=== PATIENT | male | born 1935 | race Caucasian/White ===

== ENCOUNTER 2023-11-21 10:33 | Inpatient (IN) | payer OTHER, SELFPAY ==
[2023-11-21] VITALS (7 sets, daily range): BP systolic 120–167; BP diastolic 66–84; PULSE 60–71; RESP 16–24; TEMP 36.4–37.1; O2SAT 93–98; BMI 26.8
--- NOTE | ~2023-11-21 | CT_ITS ---
EXAMINATION: CT HEAD WITHOUT CONTRAST (STROKE PROTOCOL) CLINICAL INFORMATION: Stroke protocol. Right-sided weakness COMPARISON: None available. TECHNIQUE: Contiguous axial imaging was performed from the skull base to vertex without intravenous administration of contrast. This CT examination was performed using dose optimization techniques as appropriate, variously including the following: *Automated exposure control *Adjustment of mA and/or kV according to patient size (this includes techniques or standardized protocols for targeted exams where dose is matched to indication/reason for exam; i.e. extremities or head) *Use of iterative reconstruction technique DLP: 805 mGy-cm FINDINGS: There is no evidence for an extra-axial collection. There is no evidence for intra-or extra-axial hemorrhage. The ventricles and extra-axial CSF spaces are prominent suggestive of mild generalized atrophy. There is nonspecific periventricular white matter disease. No mass, mass effect or infarct is seen. No skull fracture. Degenerative changes at the right temporomandibular joint.. Sinuses mastoid air cells and middle ears are clear. CT/CT head for stroke IMPRESSION: No acute intracranial pathology. Mild generalized atrophy and nonspecific periventricular white matter disease. This critical result was discussed with Dr. Brar at 1055 hours on 11/21/2023. It was ascertained that the content and urgency of the report was understood at the time of direct communication.
--- NOTE | ~2023-11-21 | MR_ITS ---
EXAMINATION: MR BRAIN WITHOUT CONTRAST CLINICAL INFORMATION: Transient ischemic attack. Cerebrovascular accident. COMPARISON: CTA head and neck from 11/21/2023. TECHNIQUE: MRI of the brain was obtained using routine sequences without contrast. FINDINGS: Small region of restricted diffusion within the left tate radiata/tail of the left caudate nucleus. Associated T2 FLAIR hyperintensity. No evidence of hemorrhagic transformation. No additional restricted diffusion. No evidence of acute or chronic hemorrhagic products on heme-sensitive imaging. Scattered and partially confluent periventricular, deep white matter, and brainstem T2 FLAIR hyperintensities consistent with mild to moderate underlying microangiopathy. Chronic lacunar infarcts of the right central osmany and bilateral cerebellar hemispheres. Proportional prominence of the ventricles and sulcal spaces without evidence of obstructive hydrocephalus. No abnormal mass effect. No midline shift. Normal appearance of the pituitary gland. Normal positioning of the cerebellar tonsils. Normal arterial and venous vascular flow voids are present. Normal, homogeneous marrow signal. Mild mucosal thickening of the paranasal sinuses. Mild leftward nasal septal deviation. No signal abnormalities within the mastoids. Right-sided lens extraction. MR/MR head/brain wo con IMPRESSION: 1. Small acute infarct of the left tate radiata/tail of the left caudate nucleus. No evidence of hemorrhagic transformation. 2. Mild to moderate underlying microangiopathy and generalized cerebral volume loss. Chronic lacunar infarcts of the right central osmany and bilateral cerebellar hemispheres.
--- NOTE | ~2023-11-21 | CT_ITS ---
CT ANGIOGRAM NECK WITH CONTRAST CT ANGIOGRAM BRAIN WITH CONTRAST CLINICAL INFORMATION: Sudden onset result right-sided weakness. COMPARISON: Head CT performed earlier the same day. TECHNIQUE: Test bolus sequences followed by intravenous administration 70 mL of Omnipaque 350. Helical imaging was performed in the axial plane from the thoracic inlet to the skull vertex. Delayed postcontrast imaging of the head was also performed. The data was processed at the operating room surgical technologist workstation for generation of MIP sequences. Angled MIPs and volume rendered reformatted images were also generated at an offline 3D workstation under concurrent supervision. Stenoses are assessed in accordance with NASCET criteria unless otherwise indicated. This CT examination was performed using dose optimization techniques as appropriate, variously including the following: *Automated exposure control *Adjustment of mA and/or kV according to patient size (this includes techniques or standardized protocols for targeted exams where dose is matched to indication/reason for exam; i.e. extremities or head) *Use of iterative reconstruction technique FINDINGS: BRAIN: [There is an indeterminate age small infarct within the right ventral osmany and there are small indeterminate age lacunar infarcts within the deep smith nuclei bilaterally and cerebellar hemispheres as well as background chronic microangiopathy. A MRI of the brain could be obtained to more definitively exclude an acute infarct if not contraindicated. No mass effect intracranially and no intracranial hemorrhage. There is no intracranial hemorrhage, hydrocephalus, extra-axial surface collection, midline shift, or other herniation pattern. Smith to white matter differentiation is diffusely maintained without evidence of an evolved acute territorial infarct. The basilar cisterns are preserved. No significant soft tissue abnormality. No acute osseous abnormality. The paranasal sinuses and the mastoid air cells are well aerated.] CERVICAL SOFT TISSUES AND LUNG APICES: Imaged upper lungs are clear. There are no significant soft tissue findings within the neck. Right lens extraction. There is advanced cervical spondylosis. NECK CTA: The right vertebral artery is dominant and the cervical vertebral arteries remain widely patent throughout their course. There is a 3 great vessel branch configuration off of the aortic arch and the great vessel origins remain widely patent. There is atherosclerotic calcification involving the carotid bifurcations bilaterally without significant stenosis involving the proximal internal carotid arteries either side. BRAIN CTA: [There is normal opacification of major intracranial arteries. No focal flow-limiting stenosis nor discrete proximal large artery occlusion. A 1.5 mm infundibulum versus aneurysm projects inferiorly communicating segment of the right internal carotid artery. There is a 1.5 mm infundibulum versus aneurysm at the junction of the left anterior cerebral artery and the left anterior artery as well. Timing of the contrast bolus allows assessment of the major dural venous sinuses, which all opacify normally] CT/CT angio head neck IMPRESSION: - There is an indeterminate age small infarct within the right ventral osmany and there are small indeterminate age lacunar infarcts within the deep smith nuclei bilaterally and cerebellar hemispheres as well as background chronic microangiopathy. A MRI of the brain could be obtained to more definitively exclude an acute infarct if not contraindicated. No mass effect intracranially and no intracranial hemorrhage. - No acute arterial occlusions and no significant arterial stenoses within the head or neck. - A 1.5 mm infundibulum versus aneurysm projects inferiorly communicating segment of the right internal carotid artery. There is a 1.5 mm infundibulum versus aneurysm at the junction of the left anterior cerebral artery and the left anterior artery as well. - Advanced cervical spondylosis.
--- NOTE | ~2023-11-21 | XR_ITS ---
EXAMINATION: XR CHEST CLINICAL INFORMATION: Weakness COMPARISON: None available. TECHNIQUE: Frontal view of the chest was obtained. FINDINGS: The cardiac silhouette does not appear enlarged. There is an aortic valve stent graft. Hilar and mediastinal contours are unremarkable. The lungs are clear. No pleural effusion or pneumothorax. Bony structures are unremarkable. XR/XR chest 1V IMPRESSION: No evidence for acute disease in the chest.
--- NOTE | 2023-11-21 10:40 | ECG_ITS ---
Test Reason : STROKE Blood Pressure : / mmHG Vent. Rate : 060 BPM Atrial Rate : 055 BPM P-R Int : 000 ms QRS Dur : 170 ms QT Int : 482 ms P-R-T Axes : 000 -65 071 degrees QTc Int : 482 ms Ventricular-paced rhythm Abnormal ECG No previous ECGs available Referred By: Daniela Jay Electronically Signed By:Roland Ramos
--- NOTE | 2023-11-21 10:55 | ED.NEUROSD ---
HPI - Neuro Symptoms/Deficit General Chief Complaint: Stroke Stated Complaint: Sudden onset weakness. Stroke Alert Source: patient, EMS and old records reviewed Mode of arrival: EMS Limitations: no limitations History of Present Illness ED Provider: JACQUE HPI Narrative: 88 yo male with PMH of BPH, HLD, CVA reported L sided deficits, dCHF, dysphagia, afib on pradaxa, PPM, TAVR 2022, depression, 90 minutes ago was noted by staff to have R arm weakness sudden and slurred speech that resolved upon EMS arrival. EMS noted diffusely weak in both legs patient denies c/o headache or trauma. Pradaxa is not on med list but patient is alert and oriented x 3 and both patient and [facility] staff told EMS he was on pradaxa to EMS he has been consistent. 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 The patient has no complaints at this time states his LLE weakness is chronic Onset (ago): hour(s) (1.5) Timing confirmed by: caregiver Location: speech and right arm History of same: No Severity: moderate Quality: weak Relieving factors: time Exacerbating factors: none Context: sudden onset On Anticoagulants: Yes Associated symptoms: denies other symptoms Treatments Prior to Arrival: none Related Data Allergies Allergy/AdvReac Type Severity Reaction Status Date / Time aspirin Allergy Unknown Verified 11/21/23 10:46 lisinopril Allergy Unknown Verified 11/21/23 10:46 Review of Systems Review of Systems: Constitutional : No Fever, No Chills, No Fatigue ENT/Mouth : No sore throat, No Rhinorrhea Eyes: No Eye Pain, No Swelling, No Redness Cardiovascular : No Chest Pain, No SOB, No Dyspnea on Exertion Respiratory : No Cough, No Sputum Gastrointestinal : No Nausea, No Vomiting, No Diarrhea, No abdominal Pain Genitourinary : No Dysuria, No Urinary Frequency, No Hematuria, Musculoskeletal : No joint pain, No Myalgias, No Joint Swelling Skin : No Skin Lesions, No rash Neuro :pos Weakness, No Numbness, No Dizziness, no Headache Psych : No Anxiety/Panic, No Depression Heme/Lymph: No Bruising, No Bleeding,No Lymphadenopathy Endocrine : No Polyuria, No Polydipsia All other systems reviewed and are negative PMFSH Past Medical History Source: old records reviewed Medical History CHF (congestive heart failure) HTN (hypertension) Hyperlipidemia Glaucoma BPH (benign prostatic hyperplasia) CVA (cerebral vascular accident) Afib Surgical History S/P TAVR (transcatheter aortic valve replacement) Social History Social History (Updated 11/21/23 @ 11:05 by Daniela Jay DO) Patient Tobacco Use Status: Never used Tobacco Smoked in Last 30 Days: No Advance Directives: No Advance Directives Information Provided: Yes Physical Exam Vital Signs: Vital Signs: Last Vital Signs Temp 97.6 F 11/21/23 14:00 Pulse 60 11/21/23 14:00 Resp 22 H 11/21/23 14:00 BP 157/84 H 11/21/23 14:00 Pulse Ox 93 11/21/23 12:00 O2 Del Method Room Air 11/21/23 14:00 BMI result Body Mass Index 26.8 Appearance: Alert. Oriented X3. No acute distress. Eyes: Pupils equal, round and reactive to light. ENT: Pharynx normal. Neck: Normal inspection. Neck supple. CVS: Normal heart rate and rhythm. Pulses normal. Respiratory: No respiratory distress. Breath sounds normal. Abdomen: Soft and non-tender. Skin: Skin warm and dry. Normal skin color. Normal skin turgor. Extremities: No lower extremity edema. No calf ttp Neuro: Oriented X 3. L leg weakness 4/5 otherwise no drift or deficits noted. No sensory deficit. Course Course Course Narrative: NIH is 1 but 1 is old deficit so NIH would be 0 from deficits today Medications Administered Discontinued Medications Generic Name Dose Route Start Last Admin Trade Name Mikeq PRN Reason Stop Dose Admin Iohexol 70 ml 11/21/23 13:07 11/21/23 13:07 Iohexol 350 Mg/Ml 100 Ml Infus..Btl IV 11/21/23 13:08 70 ml ONCE ONE Administration Medical Decision Making Medical Decision Making [facility] Narrative: 88 yo male with PMH of BPH, HLD, CVA reported L sided deficits, dCHF, dysphagia, afib on pradaxa, PPM, TAVR 2022, depression here with reported R sided deficits at [facility] not seen by EMS patient then had diffuse LE weakness at this time not toxic no headache has no new deficits doubt LVO and I do not have baseline Cr will obtain basic labs, CT head for ICH/mass he is persistent he is on pradaxa so not a candidate for TNK though NIH is O. Possible toxic/metabolic weakness vs TIA Differential Diagnosis Differential Diagnoses: The differential diagnosis associated with the presentation includes TIA, weakness, stroke or toxic metabolic encephalopathy Admission/Observation Consideration of admission/observation: Escalation of care including admission/observation considered aspirin held already on pradaxa will admit for further workup Consult Healthcare Provider Management of the patient was discussed with: Hospitalist (will admit) Lab Data MDM Lab Attestation statement: I reviewed the patient's lab results. 11/21/23 11:03 11/21/23 11:03 Labs: Lab Results 11/21/23 11/21/23 11/21/23 Range/Units 10:38 10:41 11:02 WBC (4.8-10.8) X10*3/uL RBC (4.60-5.80) X10*6/uL Hgb (14.0-18.0) g/dl Hct (42.0-52.0) % MCV (80.0-98.0) fL MCH (27.0-33.0) pg MCHC (31.0-36.0) g/dl RDW (11.0-16.0) % Plt Count (160-400) X10*3/uL MPV (9.4-12.4) fL Immature Gran % (Auto) (0.0-0.4) % Neut % (Auto) (45-73) % Lymph % (Auto) (20-40) % [place] % (Auto) (2-11) % Eos % (Auto) (0-4) % Baso % (Auto) (0-2) % Lymph # (Auto) (1.2-4.9) X10*3/uL [place] # (Auto) (0.1-1.2) X10*3/uL Eos # (Auto) (0.0-0.4) X10*3/uL Baso # (Auto) (0.0-0.2) X10*3/uL Abs Immat Gran (auto) (0.00-0.03) X10*3/uL Absolute Neuts (auto) (2.0-8.3) x10*3/uL Absolute Nucleated RBC (0.0-0.012) X10*3/uL Nucleated RBC % (auto) (0.0-0.2) /100WBC PT (11.1-13.3) SEC Whole Blood PT 14.0 H (11.1-13.5) sec INR (0.9-1.1) Whole Blood INR 1.2 H (0.9-1.1) Sodium (135-145) mmol/L Potassium (3.3-5.1) mmol/L Chloride (96-108) mmol/L Carbon Dioxide (22-29) mmol/L Anion Gap (12-20) BUN (9-16) mg/dL Creatinine (0.5-1.4) mg/dL Estim Creat Clear Calc Estimated GFR POC Glucose 128 H (60-115) mg/dL Random Glucose (60-115) mg/dL Lactic Acid (0.5-2.0) mmol/L Calcium (8.4-10.2) mg/dL Magnesium (1.6-2.6) mg/dL Total Bilirubin (0.0-1.0) mg/dL Direct Bilirubin (0.0-0.5) mg/dL AST (5-37) U/L ALT (0-40) U/L Alkaline Phosphatase (39-117) U/L Troponin I High Sens (<3.5-35.0) ng/L B-Natriuretic Peptide (<100) pg/mL Total Protein (6.5-8.0) g/dL Albumin (3.5-5.0) g/dL Triglycerides (<150) mg/dL Cholesterol (<200) mg/dL LDL Cholesterol, Calc (<100) mg/dL HDL Cholesterol (>40) mg/dL Urine Color Urine Appearance Urine pH (5.0-9.0) Ur Specific [place] (1.005-1.025) Urine Protein (Neg-Trace) mg/dL Urine Glucose (UA) (Negative) mg/dL Urine Ketones (Negative) mg/dL Urine Blood (Negative) Urine Nitrite (Negative) Ur Leukocyte Esterase (Negative) Influenza Type A (PCR) NEGATIVE (Negative) Influenza Type B (PCR) NEGATIVE (Negative) RSV RNA Qual (PCR) NEGATIVE (Negative) SARS-CoV-2 RNA (RT-PCR) NEGATIVE (Negative) 11/21/23 11/21/23 Range/Units 11:03 11:19 WBC 7.0 (4.8-10.8) X10*3/uL RBC 4.48 L (4.60-5.80) X10*6/uL Hgb 13.7 L (14.0-18.0) g/dl Hct 40.3 L (42.0-52.0) % MCV 90.0 (80.0-98.0) fL MCH 30.6 (27.0-33.0) pg MCHC 34.0 (31.0-36.0) g/dl RDW 13.0 (11.0-16.0) % Plt Count 192 (160-400) X10*3/uL MPV 9.2 L (9.4-12.4) fL Immature Gran % (Auto) 0.3 (0.0-0.4) % Neut % (Auto) 68.8 (45-73) % Lymph % (Auto) 19.5 L (20-40) % [place] % (Auto) 8.4 (2-11) % Eos % (Auto) 2.1 (0-4) % Baso % (Auto) 0.9 (0-2) % Lymph # (Auto) 1.4 (1.2-4.9) X10*3/uL [place] # (Auto) 0.6 (0.1-1.2) X10*3/uL Eos # (Auto) 0.2 (0.0-0.4) X10*3/uL Baso # (Auto) 0.1 (0.0-0.2) X10*3/uL Abs Immat Gran (auto) 0.02 (0.00-0.03) X10*3/uL Absolute Neuts (auto) 4.8 (2.0-8.3) x10*3/uL Absolute Nucleated RBC 0.000 (0.0-0.012) X10*3/uL Nucleated RBC % (auto) 0.0 (0.0-0.2) /100WBC PT 15.2 H (11.1-13.3) SEC Whole Blood PT (11.1-13.5) sec INR 1.3 H (0.9-1.1) Whole Blood INR (0.9-1.1) Sodium 139 (135-145) mmol/L Potassium 3.9 (3.3-5.1) mmol/L Chloride 108 (96-108) mmol/L Carbon Dioxide 24 (22-29) mmol/L Anion Gap 11 L (12-20) BUN 24 H (9-16) mg/dL Creatinine 0.96 (0.5-1.4) mg/dL Estim Creat Clear Calc 53.4 Estimated GFR > 60 POC Glucose (60-115) mg/dL Random Glucose 117 H (60-115) mg/dL Lactic Acid 1.6 (0.5-2.0) mmol/L Calcium 9.2 (8.4-10.2) mg/dL Magnesium 2.2 (1.6-2.6) mg/dL Total Bilirubin 0.5 (0.0-1.0) mg/dL Direct Bilirubin 0.2 (0.0-0.5) mg/dL AST 19 (5-37) U/L ALT 12 (0-40) U/L Alkaline Phosphatase 62 (39-117) U/L Troponin I High Sens 6.1 (<3.5-35.0) ng/L B-Natriuretic Peptide 191 H (<100) pg/mL Total Protein 6.7 (6.5-8.0) g/dL Albumin 4.1 (3.5-5.0) g/dL Triglycerides 90 (<150) mg/dL Cholesterol 93 (<200) mg/dL LDL Cholesterol, Calc 39 (<100) mg/dL HDL Cholesterol 36 L (>40) mg/dL Urine Color Yellow Urine Appearance Clear Urine pH 6.0 (5.0-9.0) Ur Specific [place] 1.010 (1.005-1.025) Urine Protein Negative (Neg-Trace) mg/dL Urine Glucose (UA) Negative (Negative) mg/dL Urine Ketones Negative (Negative) mg/dL Urine Blood Negative (Negative) Urine Nitrite Negative (Negative) Ur Leukocyte Esterase Negative (Negative) Influenza Type A (PCR) (Negative) Influenza Type B (PCR) (Negative) RSV RNA Qual (PCR) (Negative) SARS-CoV-2 RNA (RT-PCR) (Negative) Independent Interpretation I performed an independent interpretation of an: EKG, Plain X-Ray and CT Scan (no ICH, age indeterminate strokes) Interpretation: Rate: 60 Rhythm: paced [place]: left wide QRS complex. ST T wave : tall anterior t waves, no JOSY qTC: 482 prior studies: paced The study has been interpreted contemporaneously by me. . Radiology Impression Discussion of test interpretation with radiology: I discussed test interpretation with the radiologist and I have reviewed the radiologist's reading. Radiologist Impression: 1055am call from Radiology no ICH Independent Historian Clinical information obtained from an independent historian. History obtained from or confirmed by: EMS External Record Review External record reviewed: Outpatient record NIH Stroke Scale Internal: Initial- Upon Arrival Level of Consciousness: Alert Level of Consciousness Questions: Answers both questions correctly Level of Consciousness Commands: Performs both tasks correctly Best Gaze: Normal Visual: No visual loss Facial Palsy: Normal Motor Arm (Right): No drift Motor Arm (Left): No drift Motor Leg (Right): No drift Motor Leg (Left): Drift Limb Ataxia: Absent Sensory: Normal Best Language: No aphasia Dysarthia: Normal Extinction and Inattention: No abnormality Score: 1 Critical Care Time Critical Care Time Critical Care Time: Yes Total Critical Care Time: 35 Attestation: stroke alert, review of records, admission I attest to this time spent taking care of the patient Discharge Plan Discharge Clinical Impression: Brain TIA Patient Disposition: Admitted As Inpatient Print Language: Danish
[2023-11-21 11:01] LABS: ~PT, ~INR - Anti Coag Clinic 1.2 (0.9-1.1)
[2023-11-21 11:02] LABS: Glucose, Whole Blood 128 mg/dL (60-115)
[2023-11-21 11:14] LABS: MANUAL DIFF FLAG NO
[2023-11-21 11:15] LABS: Basophils Absolute Auto 0.1 X10*3/uL (0.0-0.2); Basophils Percent Auto 0.9 % (0-2); Eosinophils Absolute Auto 0.2 X10*3/uL (0.0-0.4); Eosinophils Percent Auto 2.1 % (0-4); Hematocrit 40.3 % (42.0-52.0); Hemoglobin 13.7 g/dl (14.0-18.0); Imm Gran Abs Auto 0.02 X10*3/uL (0.00-0.03); Imm Gran Pct Auto 0.3 % (0.0-0.4); Lymphocytes Absolute Auto 1.4 X10*3/uL (1.2-4.9); Lymphocytes Percent Auto 19.5 % (20-40); Mean Corpuscular Hemoglobin 30.6 pg (27.0-33.0); Mean Platelet Volume 9.2 fL (9.4-12.4); Monocytes Absolute Auto 0.6 X10*3/uL (0.1-1.2); Monocytes Percent Auto 8.4 % (2-11); Neutrophils Absolute Auto 4.8 x10*3/uL (2.0-8.3); Neutrophils Percent Auto 68.8 % (45-73); Platelet Count 192 X10*3/uL (160-400); Red Blood Count 4.48 X10*6/uL (4.60-5.80)
[2023-11-21 11:21] LABS: INTERNATIONAL NORM RATIO 1.3 (0.9-1.1); Prothrombin Time 15.2 SEC (11.1-13.3)
[2023-11-21 11:27] LABS: Lactic Acid 1.6 mmol/L (0.5-2.0)
[2023-11-21 11:27] LABS: Appearance Urine Clear; Color Urine Yellow; Glucose Urine UA Negative (Negative); Leukocyte Esterase Urine Negative (Negative); Nitrite Urine Negative (Negative); Urine Blood Negative (Negative); Urine Ketones Negative (Negative); Urine Protein Negative (Neg-Trace)
[2023-11-21 11:31] LABS: Alanine Aminotransferase 12 U/L (0-40); Albumin Level 4.1 g/dL (3.5-5.0); Alkaline Phosphatase 62 U/L (39-117); Anion Gap 11 (12-20); Aspartate Amino Transferase 19 U/L (5-37); Bilirubin Direct 0.2 mg/dL (0.0-0.5); Bilirubin Total 0.5 mg/dL (0.0-1.0); Blood Urea Nitrogen 24 mg/dL (9-16); Calcium 9.2 mg/dL (8.4-10.2); Carbon Dioxide 24 mmol/L (22-29); Chloride 108 mmol/L (96-108); Creatinine Clr Calc Pharmacy 53.4; Estimated Glomerular Filt Rate > 60; Glucose Random 117 mg/dL (60-115); Magnesium 2.2 mg/dL (1.6-2.6); Potassium 3.9 mmol/L (3.3-5.1); Sodium 139 mmol/L (135-145); Total Protein 6.7 g/dL (6.5-8.0)
[2023-11-21 11:36] LABS: B Type Natriuretic Peptide 191 pg/mL (<100)
[2023-11-21 11:38] LABS: Troponin-I High Sensitivity 6.1 ng/L (<3.5-35.0)
[2023-11-21 11:51] LABS: Influenza A PCR NEGATIVE (Negative); Influenza B PCR NEGATIVE (Negative); Resp Syncy Virus RNA Qual PCR NEGATIVE (Negative); SARS COV2 PCR INHOUSE NEGATIVE (Negative)
[2023-11-21] MEDS: iohexoL 350 MG/ML 100 ML INFUS..BTL 70 ML IV (13:07)
--- NOTE | 2023-11-21 14:49 | P.HPHOSP_ITS ---
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 Patient comes from [facility] where he lives with his who is currently on vacation in [facility]. Patient reports he was in his normal state of health upon waking this morning. Showered, changed, ate breakfast, and checked news/e-mail on his computer without incident. Uses a walker at baseline. However, when patient went to push his chair back from the desk he found he lacked both strength and coordination in order to do so. States has residual left-sided weakness since stroke in 2016, and is unable to further specify whether weakness was bilateral or unilateral. The patient was eventually able to use his phone to contact a neighbor who brought the nurse to see him. Nurse apparently noticed right-sided weakness and slurred speech which resolved shortly before EMS arrived. EMS reported diffuse bilateral lower leg weakness without other focal deficits. Patient currently states he appears back to baseline. Denies headache, confusion, or acute vision changes. Reports some chronic word-finding difficulties at baseline. Denies numbness or tingling in extremities. No noticeable hemiparesis. States left-sided weakness is chronic and seems around baseline. No chest pain/pressure, palpitations. Denies shortness of breath or difficulty breathing. No fever, chills, nausea, vomiting, abdominal pain. In the ED pt was tachypneic up 22, and mildly hypertensive at 157/80. Labs were significant for mildly elevated BNP of 191, otherwise grossly unremarkable. No leukocytosis. Stable H& H. No significant electrolyte abnormalities. Hepatic and renal function WNL. UA negative for UTI. Tested negative for flu, RSV, COVID. CXR showed no evidence for acute disease in the chest. CT?of head no acute intracranial pathology, but showed mild generalized atrophy and nonspecific periventricular white matter disease. CTA of head/neck found multiple age-indeterminate small infarcts, but no acute arterial occlusions no significant arterial stenosis in the head of neck. 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 EKG demonstrated ventricularly paced rhythm. Pt will be admitted to the hospital for observation and further evaluation of right-sided deficits concerning for TIA. Review of Systems 2 Review of Systems: Right-sided weakness Slurred speech Difficulty ambulating Chronic left leg weakness Chronic difficulty word finding Chronic lower leg edema Denies headache, acute vision changes No numbness or tingling in extremities No chest pain/pressure, palpitations Denies fever, chills, nausea, vomiting, abdominal pain [facility] Medical History (Updated 11/21/23 @ 18:22 by REBECCA Elaine) Pacemaker CHF (congestive heart failure) HTN (hypertension) Hyperlipidemia Glaucoma BPH (benign prostatic hyperplasia) CVA (cerebral vascular accident) Afib Surgical History S/P TAVR (transcatheter aortic valve replacement) Social History Patient Tobacco Use Status: Never used Tobacco Meds Allergies Allergy/AdvReac Type Severity Reaction Status Date / Time aspirin Allergy Unknown Verified 11/21/23 10:46 lisinopril Allergy Unknown Verified 11/21/23 10:46 Home Medications ?Medication ?Instructions ?Recorded ?Confirmed ?Last Taken ?Type acetaminophen 500 mg tablet 1,000 mg PO Q8H PRN Pain 11/21/23 Unknown History aspirin 81 mg capsule 81 mg PO DAILY 11/21/23 Unknown History atorvastatin 80 mg tablet 80 mg PO BEDTIME 11/21/23 Unknown History brimonidine 0.2 % eye drops 1 drp ophthalmic (eye) TID 11/21/23 Unknown History calcium carbonate 1,000 mg PO DAILY 11/21/23 Unknown History cholecalciferol (vitamin D3) 25 25 mcg PO DAILY 11/21/23 Unknown History mcg (1,000 unit) capsule clonazepam 1 mg tablet 1 mg PO BEDTIME 11/21/23 11/21/23 Unknown History dabigatran etexilate 150 mg capsule 150 mg PO BID 11/21/23 11/21/23 Unknown History docusate sodium 100 mg capsule 100 mg PO BID 11/21/23 11/21/23 Unknown History dorzolamide 22.3 mg-timolol 6.8 1 drp ophthalmic (eye) TID 11/21/23 11/21/23 Unknown History mg/mL eye drops furosemide 20 mg tablet 20 mg PO DAILY 11/21/23 11/21/23 Unknown History furosemide 20 mg tablet 20 mg PO DAILY PRN Edema 11/21/23 11/21/23 Unknown History gabapentin 300 mg capsule 600 mg PO BEDTIME 11/21/23 11/21/23 Unknown History hydrocortisone 2.5 % topical 1 appl topical DAILY PRN Itching 11/21/23 11/21/23 Unknown History ointment ketoconazole 2 % shampoo 1 appl topical DAILY PRN eczema 11/21/23 11/21/23 Unknown History latanoprostene bunod 0.024 % eye 1 drp ophthalmic (eye) DAILY 11/21/23 11/21/23 Unknown History drops lidocaine 5 % topical patch 1 patch topical DAILY PRN Pain 11/21/23 11/21/23 Unknown History losartan 50 mg tablet 50 mg PO DAILY 11/21/23 11/21/23 Unknown History magnesium oxide 420 mg tablet 420 mg PO DAILY 11/21/23 11/21/23 Unknown History melatonin 3 mg tablet 6 mg PO BEDTIME PRN Insomnia 11/21/23 11/21/23 Unknown History mirtazapine 15 mg tablet 15 mg PO BEDTIME 11/21/23 11/21/23 Unknown History netarsudil 0.02 % eye drops 1 drp ophthalmic (eye) BEDTIME 11/21/23 11/21/23 Unknown History pramipexole 0.5 mg tablet 0.5 mg PO BEDTIME 11/21/23 11/21/23 Unknown History psyllium 1 packet PO DAILY 11/21/23 11/21/23 Unknown History sennosides 8.6 mg tablet (senna) 8.6 mg PO BID PRN Constipation 11/21/23 11/21/23 Unknown History simethicone 80 mg chewable tablet 80 mg PO TID PRN Other 11/21/23 11/21/23 Unknown History tamsulosin 0.4 mg capsule 0.8 mg PO BEDTIME 11/21/23 11/21/23 Unknown History triamcinolone acetonide 0.025 % 1 appl topical DAILY PRN contact 11/21/23 11/21/23 Unknown History topical cream dermatitis Physical Exam 2 Vital Signs and Narrative: Vital Signs: Last Vital Signs Temp 97.6 F 11/21/23 14:00 Pulse 60 11/21/23 14:00 Resp 22 H 11/21/23 14:00 BP 157/84 H 11/21/23 14:00 Pulse Ox 93 11/21/23 12:00 O2 Del Method Room Air 11/21/23 14:00 BMI result Body Mass Index 26.8 Constitutional: Alert, in no acute distress. Mental Status: Oriented to person, place and time. Eyes: Pupils are equal, round, and reactive to light. Ear, Nose, and Throat: Oropharynx clear, mucous membranes moist. Ears and nose without deformities. Trachea midline. Respiratory: Clear to auscultation bilaterally. No wheezing, rales, or rhonchi. Cardiovascular: S1, S2 regular. No murmurs, rubs, or gallops. Gastrointestinal: Abdomen soft, non-tender, non-distended. Normal bowel sounds. Neurologic: Moves all extremities spontaneously. Preserved, symmetrical upper extremity strength. 4/5 strength of right lower extremity. 3/5 strength of left lower extremity. Skin: Warm, dry. Extremities: 2+ bilateral lower leg edema, especially in ankles and feet. Psychiatric: Normal mood and affect. Results Labs 11/21/23 11:03 11/21/23 11:03 Labs: Laboratory Results - last 24 hr 11/21/23 11/21/23 11/21/23 10:38 10:41 11:02 MCV MCH MCHC RDW Plt Count MPV Immature Gran % (Auto) Neut % (Auto) Lymph % (Auto) [place] % (Auto) Eos % (Auto) Baso % (Auto) Lymph # (Auto) [place] # (Auto) Eos # (Auto) Baso # (Auto) Abs Immat Gran (auto) Absolute Neuts (auto) Absolute Nucleated RBC Nucleated RBC % (auto) PT Whole Blood PT 14.0 H INR Whole Blood INR 1.2 H Anion Gap Estim Creat Clear Calc Estimated GFR POC Glucose 128 H Random Glucose Lactic Acid Calcium Magnesium Total Bilirubin Direct Bilirubin AST ALT Alkaline Phosphatase Troponin I High Sens B-Natriuretic Peptide Total Protein Albumin Urine Color Urine Appearance Urine pH Ur Specific [place] Urine Protein Urine Glucose (UA) Urine Ketones Urine Blood Urine Nitrite Ur Leukocyte Esterase Influenza Type A (PCR) NEGATIVE Influenza Type B (PCR) NEGATIVE RSV RNA Qual (PCR) NEGATIVE SARS-CoV-2 RNA (RT-PCR) NEGATIVE 11/21/23 11/21/23 11:03 11:19 MCV 90.0 MCH 30.6 MCHC 34.0 RDW 13.0 Plt Count 192 MPV 9.2 L Immature Gran % (Auto) 0.3 Neut % (Auto) 68.8 Lymph % (Auto) 19.5 L [place] % (Auto) 8.4 Eos % (Auto) 2.1 Baso % (Auto) 0.9 Lymph # (Auto) 1.4 [place] # (Auto) 0.6 Eos # (Auto) 0.2 Baso # (Auto) 0.1 Abs Immat Gran (auto) 0.02 Absolute Neuts (auto) 4.8 Absolute Nucleated RBC 0.000 Nucleated RBC % (auto) 0.0 PT 15.2 H Whole Blood PT INR 1.3 H Whole Blood INR Anion Gap 11 L Estim Creat Clear Calc 53.4 Estimated GFR > 60 POC Glucose Random Glucose 117 H Lactic Acid 1.6 Calcium 9.2 Magnesium 2.2 Total Bilirubin 0.5 Direct Bilirubin 0.2 AST 19 ALT 12 Alkaline Phosphatase 62 Troponin I High Sens 6.1 B-Natriuretic Peptide 191 H Total Protein 6.7 Albumin 4.1 Urine Color Yellow Urine Appearance Clear Urine pH 6.0 Ur Specific [place] 1.010 Urine Protein Negative Urine Glucose (UA) Negative Urine Ketones Negative Urine Blood Negative Urine Nitrite Negative Ur Leukocyte Esterase Negative Influenza Type A (PCR) Influenza Type B (PCR) RSV RNA Qual (PCR) SARS-CoV-2 RNA (RT-PCR) Imaging Radiologist's Impressions: Impressions Head CT 11/21/23 10:48 IMPRESSION: No acute intracranial pathology. Mild generalized atrophy and nonspecific periventricular white matter disease. This critical result was discussed with Dr. Brar at 1055 hours on 11/21/2023. It was ascertained that the content and urgency of the report was understood at the time of direct communication. Chest X-Ray 11/21/23 11:35 IMPRESSION: No evidence for acute disease in the chest. Head/Neck CTA 11/21/23 13:34 IMPRESSION: - There is an indeterminate age small infarct within the right ventral osmany and there are small indeterminate age lacunar infarcts within the [place] nuclei bilaterally and cerebellar hemispheres as well as background chronic microangiopathy. A MRI of the brain could be obtained to more definitively exclude an acute infarct if not contraindicated. No mass effect intracranially and no intracranial hemorrhage. - No acute arterial occlusions and no significant arterial stenoses within the head or neck. - A 1.5 mm infundibulum versus aneurysm projects inferiorly communicating segment of the right internal carotid artery. There is a 1.5 mm infundibulum versus aneurysm at the junction of the left anterior cerebral artery and the left anterior artery as well. - Advanced cervical spondylosis. 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 Pt will be admitted to the hospital for observation and further evaluation of right-sided deficits concerning for TIA. Question of TIA Patient with sudden onset right-sided deficits this morning, noted by resident nurse Patient now seemingly back to baseline CTA of head and CTA of head/neck negative for acute infarcts Patient with Medtronic Micra wireless pacemaker, verify compatibility prior to getting MRI Echocardiogram with bubble study Continue Pradaxa, atorvastatin 80 mg daily Patient with aspirin allergy PT/OT evaluation Neurology consult Monitor on telemetry HFpEF Does not appear in acute exacerbation Continue furosemide HTN Continue losartan Paroxysmal AFib Continue Pradaxa DNR/DNI, verified with pt and MOLST form Attending:?Dr. Hayes DVT Prophylaxis: Lovenox Patient will be admitted to the hospital under observation for further evaluation of right-sided deficits concerning for TIA versus CVA. Patient require close monitoring of cardiac function, neurological checks, and specialist consultation with Neurology. Quality Stroke Does the patient have a stroke diagnosis?: No VTE Prior VTE?: No VTE Risk Level:: Medical - moderate - high VTE Device Contraindication: Treatment Not Indicated VTE Drug Contraindication: N/A - Med Ordered
[2023-11-21 15:29] LABS: Cholesterol 93 mg/dL (<200); HDL Cholesterol 36 mg/dL (>40); LDL Cholesterol Calculated 39 mg/dL (<100); Triglycerides 90 mg/dL (<150)
[2023-11-21] MEDS: 0.9 % Sodium Chloride Flush 3 ML SYRINGE IVFLUSH (16:56)
--- NOTE | 2023-11-21 18:04 | PHA.MEDREC ---
Pharmacy Consult ? Medication Reconciliation Pharmacy has completed the medication reconciliation. [facility]
[2023-11-21] MEDS: Enoxaparin Sodium 40 MG/0.4 ML SYRINGE SUBCUT (18:20)
[2023-11-21] MEDS: clonazePAM 1 MG TABLET PO (23:49)
[2023-11-22] VITALS (7 sets, daily range): BP systolic 147–165; BP diastolic 73–87; PULSE 60–62; RESP 16–20; TEMP 36.1–37.6; O2SAT 95–98; BMI 26.3
[2023-11-22] MEDS: Lidocaine 4 % Patch ADH..PATCH 1 PATCH TRANSDERMA (05:49)
--- NOTE | 2023-11-22 08:38 | MHC.CM.PN ---
CM met with Patient at bedside and addressed SHAY with him, providing Patient with the original and a copy has been placed on the chart. Patient lives at [facility] with his , who is presently vacationing in [facility]. Patient uses a walker and has a [employer] 5 days/week. Patient is agreeable to a referral to [facility] and may benefit from a PT Eval to assist with disposition. CM has initiated and will follow for dc planning. Patient has named his Daughter/Aminata as his HCP and states that he has a copy of it on his refrigerator. PCP is Dr. Pasha Marrufo.
[2023-11-22] MEDS: Aspirin Enteric Coated 81 MG TABLET.DR PO (10:22)
[2023-11-22] MEDS: Losartan Potassium 50 MG TABLET PO (10:22)
[2023-11-22] MEDS: Cholecalciferol (Vitamin D3) 25 MCG TABLET PO (10:22)
[2023-11-22] MEDS: 0.9 % Sodium Chloride Flush 3 ML SYRINGE IVFLUSH ×3 (10:22→15:19)
[2023-11-22] MEDS: Furosemide 20 MG TABLET PO (10:22)
[2023-11-22] MEDS: Magnesium Oxide 400 MG TABLET PO (10:22)
[2023-11-22] MEDS: Acetaminophen 325 MG TABLET 650 MG PO (10:30)
--- NOTE | 2023-11-22 14:57 | P.PNIM_ITS ---
Subjective Subjective Date of Service: 11/22/23 Interval History: Symptoms resolved per patient. Complains of ongoing/worsening leg weakness Review of Systems Denies chest pain Denies shortness of breath Denies nausea vomiting diarrhea Denies fever chills Physical Exam 2 Vital Signs: Vital Signs: Last Vital Signs Temp 97.5 F 11/22/23 12:00 Pulse 61 11/22/23 12:00 Resp 18 11/22/23 12:00 BP 147/76 H 11/22/23 12:00 Pulse Ox 96 11/22/23 12:00 O2 Del Method Room Air 11/22/23 12:00 BMI result Body Mass Index 26.3 Const: Other: Awake alert oriented x3 no acute distress Chest: Other: No palpable device Resp: Other: Clear to auscultation bilaterally. No rales rhonchi or wheezes Cardio: Other: No S4; S1-S2; no S3 murmurs rubs or gallops GI: Other: Soft nontender nondistended normoactive bowel sounds Neuro: Other: Cranial nerves 2-12 grossly intact as tested. Motor 5/5 upper extremity without pronator drift. Motor 4 to 5/5 bilateral lower extremities. Sensation is intact. Gait not observed Extrem: Other: No edema bilaterally Objective Data Active Medications Acetaminophen (Acetaminophen 325 Mg Tablet) 650 mg PO Q6H PRN PRN Reason: Pain, Mild (Pain Scale 1-3), fever or headache Last Admin: 11/22/23 10:30 Dose: 650 mg Documented By: LAURA Aspirin (Aspirin Enteric Coated 81 Mg Tablet.) 81 mg PO DAILY [facility] Last Admin: 11/22/23 10:22 Dose: 81 mg Documented By: LAURA Atorvastatin Calcium (Atorvastatin Calcium 80 Mg Tablet) 80 mg PO BEDTIME [facility] Benzonatate (Benzonatate 100 Mg Capsule) 100 mg PO TID PRN PRN Reason: Cough Brimonidine Tartrate (Brimonidine Tartrate 0.2% Oph 5 Ml Bottle) 1 drop EYE- BOTH TID [facility] Last Admin: 11/22/23 10:23 Dose: Not Given Documented By: LAURA Non-Admin Reason: Med Not Available Comments: home medication, pt from facility not able to bring in. Calcium Carbonate (Calcium Carbonate 750 Mg Tab.Chew) 750 mg PO Q4H PRN PRN Reason: Heartburn Clonazepam (Clonazepam 1 Mg Tablet) 1 mg PO BEDTIME [facility] Dorzolamide/Timolol (Dorzolamide/Timolo 2.23%/0.68% 10 Ml Drbtl) 1 drop EYE- BOTH TID [facility] Last Admin: 11/22/23 10:23 Dose: Not Given Documented By: LAURA Non-Admin Reason: Med Not Available Comments: home medication- pt from facility, no able to bring in Enoxaparin Sodium (Enoxaparin Sodium 40 Mg/0.4 Ml Syringe) 40 mg SUBCUT Q24H [facility] Last Admin: 11/21/23 18:20 Dose: 40 mg Documented By: HERIBERTO Furosemide (Furosemide 20 Mg Tablet) 20 mg PO DAILY [facility]; Protocol Last Admin: 11/22/23 10:22 Dose: 20 mg Documented By: LAURA Gabapentin (Gabapentin 300 Mg Capsule) 600 mg PO BEDTIME [facility] Losartan Potassium (Losartan Potassium 50 Mg Tablet) 50 mg PO DAILY [facility]; Protocol Last Admin: 11/22/23 10:22 Dose: 50 mg Documented By: LAURA Magnesium Hydroxide (Milk Of Magnesia 30 Ml Oral.Susp) 30 ml PO DAILY PRN PRN Reason: Constipation Magnesium Oxide (Magnesium Oxide 400 Mg Tablet) 400 mg PO DAILY [facility] Last Admin: 11/22/23 10:22 Dose: 400 mg Documented By: LAURA Melatonin (Melatonin 3 Mg Tablet) 6 mg PO BEDTIME PRN PRN Reason: Insomnia Mirtazapine (Mirtazapine 15 Mg Tablet) 15 mg PO BEDTIME [facility] Non-Formulary Medication (Latanoprostene Bunod) 1 drop EYE-BOTH DAILY [facility] Non-Formulary Medication (Netarsudil) 1 drop EYE-BOTH BEDTIME [facility] Ondansetron HCl (Ondansetron Hcl 4 Mg/2 Ml Vial) 4 mg IVPUSH Q8H PRN PRN Reason: Nausea and Vomiting Pramipexole Dihydrochloride (Pramipexole Di-Hcl 0.25 Mg Tablet) 0.5 mg PO BEDTIME [facility] Sodium Chloride (0.9 % Sodium Chloride Flush 3 Ml Syringe) 3 ml IVFLUSH QSHIFT [facility] Last Admin: 11/22/23 10:22 Dose: 3 ml Documented By: LAURA Tamsulosin HCl (Tamsulosin Hcl 0.4 Mg Capsule) 0.8 mg PO BEDTIME [facility] Vitamin D (Cholecalciferol (Vitamin D3) 25 Mcg Tablet) 25 mcg PO DAILY [facility] Last Admin: 11/22/23 10:22 Dose: 25 mcg Documented By: LAURA Labs 11/21/23 11:03 11/21/23 11:03 Labs: Laboratory Results - last 24 hr 11/21/23 11:03 Triglycerides 90 Cholesterol 93 LDL Cholesterol, Calc 39 HDL Cholesterol 36 L Microbiology Microbiology Results: Microbiology 11/21/23 11:47 Blood Culture - Preliminary Blood - Venous No growth after 24 hours. 11/21/23 11:04 Blood Culture - Preliminary Blood - Venous No growth after 24 hours. 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 Pt will be admitted to the hospital for observation and further evaluation of right-sided deficits concerning for TIA. 1.Question of TIA -Patient with Medtronic Micra wireless pacemaker, verify compatibility prior to getting MRI -Echocardiogram with bubble study -Continue Pradaxa, atorvastatin 80 mg daily -await neurologic input; question restart aspirin -PT/OT evaluation 2.HFpEF -stable and well compensated -continue current therapies 3.HTN -acceptable control on current therapy -adjust as indicated 4.Paroxysmal AFib -Continue Pradaxa DNR/DNI, Pradaxa Patient requires ongoing hospitalization to complete workup for TIA; high risk for outpatient failure if discharged before workup is complete Quality Stroke Does the patient have a stroke diagnosis?: No VTE Prior VTE?: No VTE Risk Level:: Medical - moderate - high VTE Device Contraindication: Treatment Not Indicated VTE Drug Contraindication: N/A - Med Ordered
--- NOTE | 2023-11-22 18:17 | PC.NURSE ---
Spoke with Mira about plan for patient. is currently traveling abroad and 12 hours ahead. first concern is that the patient was not admitted and here for observation and there is a conflict with insurance if patient is not admitted. Contacted Dr. Hayes via icomply @ 14:46 about patient concern of admission status and he update the patient to be admitted. The second concern the Mira had if the admission was appropriate, has concern that the MRI could be done out patient, or called to see if patient could be transferred to [facility] or [facility] to receive MRI sooner as he had a previous MRI at [facility] in the last [address]. [address] Hayes aware of patient concerns, the patient will remain at hospital tonight and update plan will be put in place tomorrow after the neurology consult. asked to call family friends if patient is discharged home: Mira Helm [phone] or Jody Hall [phone] Pacemacker ID card in patient wallet- [employer] :Dr. Shaila Hess, at [facility], Serial number: [id number] Model: [id number], Implant: [id number]-[id number], Size: 20mm, Position: Aortic
[2023-11-22] MEDS: clonazePAM 1 MG TABLET PO (21:00)
[2023-11-22] MEDS: Atorvastatin Calcium 80 MG TABLET PO (21:00)
[2023-11-22] MEDS: Tamsulosin HCL 0.4 MG CAPSULE 0.8 MG PO (21:00)
[2023-11-22] MEDS: Mirtazapine 15 MG TABLET PO (21:00)
[2023-11-22] MEDS: Gabapentin 300 MG CAPSULE 600 MG PO (21:01)
[2023-11-22] MEDS: Pramipexole Di-HCL 0.25 MG TABLET 0.5 MG PO (21:01)
[2023-11-22] MEDS: Dabigatran Etexilate Mesylate 150 MG CAPSULE PO (21:01)
[2023-11-22] MEDS: Brimonidine Tartrate 0.2% Oph 5 ML BOTTLE 1 DROP EYE-BOTH (21:01)
[2023-11-22] MEDS: Dorzolamide/Timolo 2.23%/0.68% 10 ML DRBTL 1 DROP EYE-BOTH (21:01)
[2023-11-23] VITALS: BP 126/78; PULSE 61; RESP 20; TEMP 36.6; O2SAT 94
[2023-11-23 04:00] VITALS: BP 134/76; PULSE 69; RESP 20; TEMP 36.3; O2SAT 95
[2023-11-23] MEDS: Lidocaine 4 % Patch ADH..PATCH 2 PATCH TRANSDERMA (05:11)
[2023-11-23 08:00] VITALS: BP 114/89; PULSE 64; RESP 20; TEMP 36.1; O2SAT 98
[2023-11-23] MEDS: 0.9 % Sodium Chloride Flush 3 ML SYRINGE IVFLUSH ×4 (09:44→21:56)
[2023-11-23] MEDS: Aspirin Enteric Coated 81 MG TABLET.DR PO (09:44)
[2023-11-23] MEDS: Cholecalciferol (Vitamin D3) 25 MCG TABLET PO (09:44)
[2023-11-23] MEDS: Losartan Potassium 50 MG TABLET PO (09:44)
[2023-11-23] MEDS: Dabigatran Etexilate Mesylate 150 MG CAPSULE PO ×2 (09:44→21:55)
[2023-11-23] MEDS: Magnesium Oxide 400 MG TABLET PO (09:44)
[2023-11-23] MEDS: Furosemide 20 MG TABLET PO (09:44)
[2023-11-23] MEDS: Brimonidine Tartrate 0.2% Oph 5 ML BOTTLE 1 DROP EYE-BOTH ×3 (09:45→21:56)
[2023-11-23] MEDS: Dorzolamide/Timolo 2.23%/0.68% 10 ML DRBTL 1 DROP EYE-BOTH ×3 (09:46→21:55)
--- NOTE | 2023-11-23 10:07 | MHC.CM.PN ---
Per MD, Patient was changed to INPATIENT yesterday; no IMM is needed ([employer]IC/Commercial)
[2023-11-23 12:00] VITALS: BP 145/78; PULSE 65; RESP 18; TEMP 36.8; O2SAT 97
--- NOTE | 2023-11-23 12:41 | HO.PM.IMPN ---
Subjective Subjective Date of Service: 11/23/23 Interval History: No acute issues overnight. All presenting symptoms have resolved Review of Systems Denies chest pain Denies shortness of breath Denies nausea vomiting diarrhea Denies fever chills Physical Exam Vital Signs: Vital Signs: Last Vital Signs Temp 98.2 F 11/23/23 12:00 Pulse 65 11/23/23 12:00 Resp 18 11/23/23 12:00 BP 145/78 H 11/23/23 12:00 Pulse Ox 97 11/23/23 12:00 O2 Del Method Room Air 11/23/23 12:00 O2 Flow Rate 4 11/23/23 04:00 BMI result Body Mass Index 26.3 Const: Other: Awake alert oriented x3 no acute distress Chest: Other: No palpable device Resp: Other: Clear to auscultation bilaterally. No rales rhonchi or wheezes Cardio: Other: No S4; S1-S2; no S3 murmurs rubs or gallops GI: Other: Soft nontender nondistended normoactive bowel sounds Neuro: Other: Cranial nerves 2-12 grossly intact as tested. Motor 5/5 upper extremity without pronator drift. Motor 4 to 5/5 bilateral lower extremities. Sensation is intact. Gait not observed Extrem: Other: No edema bilaterally Objective Data Active Medications Acetaminophen (Acetaminophen 325 Mg Tablet) 650 mg PO Q6H PRN PRN Reason: Pain, Mild (Pain Scale 1-3), fever or headache Last Admin: 11/22/23 10:30 Dose: 650 mg Documented By: LAURA Aspirin (Aspirin Enteric Coated 81 Mg Tablet.) 81 mg PO DAILY [facility] Last Admin: 11/23/23 09:44 Dose: 81 mg Documented By: LAURA Atorvastatin Calcium (Atorvastatin Calcium 80 Mg Tablet) 80 mg PO BEDTIME [facility] Last Admin: 11/22/23 21:00 Dose: 80 mg Documented By: MEKA Benzonatate (Benzonatate 100 Mg Capsule) 100 mg PO TID PRN PRN Reason: Cough Brimonidine Tartrate (Brimonidine Tartrate 0.2% Oph 5 Ml Bottle) 1 drop EYE-BOTH TID [facility] Last Admin: 11/23/23 09:45 Dose: 1 drop Documented By: LAURA Calcium Carbonate (Calcium Carbonate 750 Mg Tab.Chew) 750 mg PO Q4H PRN PRN Reason: Heartburn Clonazepam (Clonazepam 1 Mg Tablet) 1 mg PO BEDTIME [facility] Last Admin: 11/22/23 21:00 Dose: 1 mg Documented By: MEKA Dabigatran (Dabigatran Etexilate Mesylate 150 Mg Capsule) 150 mg PO BID [facility] Last Admin: 11/23/23 09:44 Dose: 150 mg Documented By: LAURA Dorzolamide/Timolol (Dorzolamide/Timolo 2.23%/0.68% 10 Ml Drbtl) 1 drop EYE-BOTH TID [facility] Last Admin: 11/23/23 09:46 Dose: 1 drop Documented By: LAURA Furosemide (Furosemide 20 Mg Tablet) 20 mg PO DAILY [facility]; Protocol Last Admin: 11/23/23 09:44 Dose: 20 mg Documented By: LAURA Gabapentin (Gabapentin 300 Mg Capsule) 600 mg PO BEDTIME [facility] Last Admin: 11/22/23 21:01 Dose: 600 mg Documented By: MEKA Lidocaine (Lidocaine 4 % Patch Adh..Patch) 2 patch TRANSDERMA DAILY [facility]; Protocol Last Admin: 11/23/23 05:11 Dose: 2 patch Documented By: MEKA Losartan Potassium (Losartan Potassium 50 Mg Tablet) 50 mg PO DAILY [facility]; Protocol Last Admin: 11/23/23 09:44 Dose: 50 mg Documented By: LAURA Magnesium Hydroxide (Milk Of Magnesia 30 Ml Oral.Susp) 30 ml PO DAILY PRN PRN Reason: Constipation Magnesium Oxide (Magnesium Oxide 400 Mg Tablet) 400 mg PO DAILY [facility] Last Admin: 11/23/23 09:44 Dose: 400 mg Documented By: LAURA Melatonin (Melatonin 3 Mg Tablet) 6 mg PO BEDTIME PRN PRN Reason: Insomnia Mirtazapine (Mirtazapine 15 Mg Tablet) 15 mg PO BEDTIME [facility] Last Admin: 11/22/23 21:00 Dose: 15 mg Documented By: MEKA Non-Formulary Medication (Latanoprostene Bunod) 1 drop EYE-BOTH DAILY [facility] Non-Formulary Medication (Netarsudil) 1 drop EYE-BOTH BEDTIME [facility] Ondansetron HCl (Ondansetron Hcl 4 Mg/2 Ml Vial) 4 mg IVPUSH Q8H PRN PRN Reason: Nausea and Vomiting Pramipexole Dihydrochloride (Pramipexole Di-Hcl 0.25 Mg Tablet) 0.5 mg PO BEDTIME [facility] Last Admin: 11/22/23 21:01 Dose: 0.5 mg Documented By: MEKA Sodium Chloride (0.9 % Sodium Chloride Flush 3 Ml Syringe) 3 ml IVFLUSH QSHIFT [facility] Last Admin: 11/23/23 09:44 Dose: 3 ml Documented By: LAURA Tamsulosin HCl (Tamsulosin Hcl 0.4 Mg Capsule) 0.8 mg PO BEDTIME [facility] Last Admin: 11/22/23 21:00 Dose: 0.8 mg Documented By: MEKA Vitamin D (Cholecalciferol (Vitamin D3) 25 Mcg Tablet) 25 mcg PO DAILY [facility] Last Admin: 11/23/23 09:44 Dose: 25 mcg Documented By: LAURA Labs 11/21/23 11:03 11/21/23 11:03 Microbiology Microbiology Results: Microbiology 11/21/23 11:47 Blood Culture - Preliminary Blood - Venous No growth after 24 hours. 11/21/23 11:04 Blood Culture - Preliminary Blood - Venous No growth after 24 hours. 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 Pt will be admitted to the hospital for observation and further evaluation of right-sided deficits concerning for TIA. 1.Question of TIA -Patient with Medtronic Micra wireless pacemaker, verify compatibility prior to getting MRI -Echocardiogram with bubble study -Continue Pradaxa/atorvastatin 80 mg/ASA 81mg daily -PT/OT evaluation 2.HFpEF -stable and well compensated -continue current therapies 3.HTN -acceptable control on current therapy -adjust as indicated 4.Paroxysmal AFib -Continue Pradaxa DNR/DNI, Pradaxa Patient requires ongoing hospitalization to complete workup for TIA; high risk for outpatient failure if discharged before workup is complete Quality Stroke Does the patient have a stroke diagnosis?: No VTE Prior VTE?: No VTE Risk Level:: Medical - moderate - high VTE Device Contraindication: Treatment Not Indicated VTE Drug Contraindication: N/A - Med Ordered
[2023-11-23 15:18] VITALS: BP 146/84; PULSE 74; RESP 20; TEMP 36.4; O2SAT 98
[2023-11-23 19:26] VITALS: BP 149/80; PULSE 66; RESP 20; TEMP 36.7; O2SAT 96
[2023-11-23] MEDS: Atorvastatin Calcium 80 MG TABLET PO (21:55)
[2023-11-23] MEDS: Pramipexole Di-HCL 0.25 MG TABLET 0.5 MG PO (21:55)
[2023-11-23] MEDS: Mirtazapine 15 MG TABLET PO (21:55)
[2023-11-23] MEDS: Gabapentin 300 MG CAPSULE 600 MG PO (21:55)
[2023-11-23] MEDS: clonazePAM 1 MG TABLET PO (21:55)
[2023-11-23] MEDS: Tamsulosin HCL 0.4 MG CAPSULE 0.8 MG PO (21:56)
[2023-11-24] VITALS (9 sets, daily range): BP systolic 105–150; BP diastolic 65–83; PULSE 60–82; RESP 18; TEMP 36–37.3; O2SAT 95–98
--- NOTE | 2023-11-24 07:00 | CA_ITS ---
Transthoracic Echocardiogram Patient (Last, First, Middle): Skyler Herbert, Gender: Male Date of : 1935 Age: 88 Procedure Date: 11/24/2023 Procedure Type: Transthoracic Echocardiogram [place] [facility] [place]: 172.72 cm Weight: 78.47 kg BSA: 1.92 m2 Heart Rate: 63 bpm BP: 105 / 65 mmHg [place] Targeting Supervisor: CECIL Briceño MD: Padilla Hayes DO Supervisor Dry Cleaning: Silviano Pat MD Symptoms: cva Study Quality: Technically Difficult/Limited ECG Rhythm: Sinus Conclusions: - Technically limited study with no significant diagnostic information except for probably normal right atrial pressures Findings Procedure Information The quality of the study was technically difficult. The study quality is limited by patients body habitus. Left Ventricle The left ventricle was not well visualized. Diastolic function is indeterminate on the basis of available data. Right Ventricle The right ventricle was not well visualized. Atria The left atrium was not well visualized. Interatrial shunt cannot be excluded. The right atrium was not well visualized. Aortic Valve The aortic valve was not well visualized. There is moderate calcification of the aortic valve. Mitral Valve The mitral valve was not well visualized. Pulmonic Valve The pulmonic valve was not well visualized. Tricuspid Valve The tricuspid valve was not well visualized. There is trace tricuspid valve regurgitation. There is no evidence of pulmonary hypertension. Great Vessels The aorta was not well visualized. The pulmonary artery was not well visualized. Venous The inferior vena cava is normal in size. Pericardium/Pleural The pericardium was not well visualized. Prior Study Comparison No prior study available for comparison. Measurements 2D Linear Measurements IVSd: 0.99 0.6-0.9/0.6-1.0 cm LVIDd: 3.51 3.9-5.3/4.2-5.9 cm LVIDd Index: 1.83 2.4-3.2/2.2-3.1 cm/m2 LVPWd: 1.20 0.7-1.1 cm LA Diam: 4.60 2.7-3.8/3.0-4.0 cm LAIDs Index: 2.40 1.5-2.3 cm/m2 LV Mass: 147.83 67-162/88-224 g LV Mass Index: 76.99 43-95/49-115 g/m2 LVOT Diam: 2.20 3.0+(-)1.3 cm Mitral Valve MV Pk E: 0.64 MV PK A: 0.33 MV Decel Time: 239.00 E/A: 1.90 E'Lateral: 4.35 E'Medial: 5.33 E/E' Med: 12.10 E/E' Lat: 14.80 PHT: 70.00 MVA PHT: 3.14 Decel Radford: 2.69 Aortic Valve AoV Pk Donnell: 1.08 AoV Pk Grad: 5.00 LVOT LVOT Pk Donnell: 0.87 LVOT Mn Donnell: 0.65 LVOT VTI: 0.18 LVOT Pk Grad: 3.00 LVOT Mn Grad: 2.00 LVOT Diam: 2.20 LVOT Area: 3.80 Diastolic Function MV Pk E: 0.64 MV Pk A: 0.33 E/A: 1.90 E'Medial: 5.33 E/E' Med: 12.10 E' Laterial: 4.35 E/E' Lat: 14.80 Right Ventricle TAPSE (mm): 13.60 TVS' Donnell: 12.00 Tricuspid Valve TR Pk Donnell: 1.59 TR Pk Grad: 10.00 RA Press: 3.00 RVSP: 13.00 Great Vessels Aorta Sinus of Valsalva: 3.60 2.0-3.5 cm Pulmonary Valve PV Pk Donnell: 0.76 Peak PV Grad: 2.00 Updated in Other Vendor System with Status of Final Silviano Pat MD electronically signed on 11/24/2023 11:56:28 AM with status of Final
[2023-11-24] MEDS: Dabigatran Etexilate Mesylate 150 MG CAPSULE PO ×2 (09:03→20:48)
[2023-11-24] MEDS: Aspirin Enteric Coated 81 MG TABLET.DR PO (09:04)
[2023-11-24] MEDS: Furosemide 20 MG TABLET PO (09:04)
[2023-11-24] MEDS: Losartan Potassium 50 MG TABLET PO (09:04)
[2023-11-24] MEDS: Brimonidine Tartrate 0.2% Oph 5 ML BOTTLE 1 DROP EYE-BOTH ×3 (09:04→20:44)
[2023-11-24] MEDS: Dorzolamide/Timolo 2.23%/0.68% 10 ML DRBTL 1 DROP EYE-BOTH ×3 (09:04→20:45)
[2023-11-24] MEDS: Cholecalciferol (Vitamin D3) 25 MCG TABLET PO (09:04)
[2023-11-24] MEDS: 0.9 % Sodium Chloride Flush 3 ML SYRINGE IVFLUSH ×3 (09:04→20:51)
[2023-11-24] MEDS: Magnesium Oxide 400 MG TABLET PO (09:04)
[2023-11-24] MEDS: Lidocaine 4 % Patch ADH..PATCH 2 PATCH TRANSDERMA (09:05)
--- NOTE | 2023-11-24 13:18 | P.PNIM_ITS ---
Subjective Subjective Date of Service: 11/24/23 Interval History: No acute issues overnight. MRI results pending. PT recommends acute rehab Review of Systems Denies chest pain Denies shortness of breath Denies nausea vomiting diarrhea Denies fever chills Physical Exam 2 Vital Signs: Vital Signs: Last Vital Signs Temp 97.2 F 11/24/23 11:38 Pulse 82 11/24/23 11:38 Resp 18 11/24/23 11:38 BP 134/78 11/24/23 11:38 Pulse Ox 96 11/24/23 11:38 O2 Del Method Room Air 11/24/23 11:38 O2 Flow Rate 4 11/23/23 04:00 BMI result Body Mass Index 26.3 Const: Other: Awake alert oriented x3 no acute distress Chest: Other: No palpable device Resp: Other: Clear to auscultation bilaterally. No rales rhonchi or wheezes Cardio: Other: No S4; S1-S2; no S3 murmurs rubs or gallops GI: Other: Soft nontender nondistended normoactive bowel sounds Neuro: Other: Cranial nerves 2-12 grossly intact as tested. Motor 5/5 upper extremity without pronator drift. Motor 4 to 5/5 bilateral lower extremities. Sensation is intact. Gait not observed Extrem: Other: No edema bilaterally Objective Data Active Medications Acetaminophen (Acetaminophen 325 Mg Tablet) 650 mg PO Q6H PRN PRN Reason: Pain, Mild (Pain Scale 1-3), fever or headache Last Admin: 11/22/23 10:30 Dose: 650 mg Documented By: LAURA Aspirin (Aspirin Enteric Coated 81 Mg Tablet.) 81 mg PO DAILY [facility] Last Admin: 11/24/23 09:04 Dose: 81 mg Documented By: CHINO Atorvastatin Calcium (Atorvastatin Calcium 80 Mg Tablet) 80 mg PO BEDTIME [facility] Last Admin: 11/23/23 21:55 Dose: 80 mg Documented By: EZEQUIEL Benzonatate (Benzonatate 100 Mg Capsule) 100 mg PO TID PRN PRN Reason: Cough Brimonidine Tartrate (Brimonidine Tartrate 0.2% Oph 5 Ml Bottle) 1 drop EYE- BOTH TID [facility] Last Admin: 11/24/23 09:04 Dose: 1 drop Documented By: CHINO Calcium Carbonate (Calcium Carbonate 750 Mg Tab.Chew) 750 mg PO Q4H PRN PRN Reason: Heartburn Clonazepam (Clonazepam 1 Mg Tablet) 1 mg PO BEDTIME [facility] Last Admin: 11/23/23 21:55 Dose: 1 mg Documented By: EZEQUIEL Dabigatran (Dabigatran Etexilate Mesylate 150 Mg Capsule) 150 mg PO BID [facility] Last Admin: 11/24/23 09:03 Dose: 150 mg Documented By: CHINO Dorzolamide/Timolol (Dorzolamide/Timolo 2.23%/0.68% 10 Ml Drbtl) 1 drop EYE- BOTH TID [facility] Last Admin: 11/24/23 09:04 Dose: 1 drop Documented By: CHINO Furosemide (Furosemide 20 Mg Tablet) 20 mg PO DAILY [facility]; Protocol Last Admin: 11/24/23 09:04 Dose: 20 mg Documented By: CHINO Gabapentin (Gabapentin 300 Mg Capsule) 600 mg PO BEDTIME [facility] Last Admin: 11/23/23 21:55 Dose: 600 mg Documented By: EZEQUIEL Lidocaine (Lidocaine 4 % Patch Adh..Patch) 2 patch TRANSDERMA DAILY [facility]; Protocol Last Admin: 11/24/23 09:05 Dose: 2 patch Documented By: CHINO Losartan Potassium (Losartan Potassium 50 Mg Tablet) 50 mg PO DAILY [facility]; Protocol Last Admin: 11/24/23 09:04 Dose: 50 mg Documented By: CHINO Magnesium Hydroxide (Milk Of Magnesia 30 Ml Oral.Susp) 30 ml PO DAILY PRN PRN Reason: Constipation Magnesium Oxide (Magnesium Oxide 400 Mg Tablet) 400 mg PO DAILY [facility] Last Admin: 11/24/23 09:04 Dose: 400 mg Documented By: CHINO Melatonin (Melatonin 3 Mg Tablet) 6 mg PO BEDTIME PRN PRN Reason: Insomnia Mirtazapine (Mirtazapine 15 Mg Tablet) 15 mg PO BEDTIME [facility] Last Admin: 11/23/23 21:55 Dose: 15 mg Documented By: EZEQUIEL Non-Formulary Medication (Latanoprostene Bunod) 1 drop EYE-BOTH DAILY [facility] Non-Formulary Medication (Netarsudil) 1 drop EYE-BOTH BEDTIME [facility] Ondansetron HCl (Ondansetron Hcl 4 Mg/2 Ml Vial) 4 mg IVPUSH Q8H PRN PRN Reason: Nausea and Vomiting Pramipexole Dihydrochloride (Pramipexole Di-Hcl 0.25 Mg Tablet) 0.5 mg PO BEDTIME [facility] Last Admin: 11/23/23 21:55 Dose: 0.5 mg Documented By: EZEQUIEL Sodium Chloride (0.9 % Sodium Chloride Flush 3 Ml Syringe) 3 ml IVFLUSH QSHIFT [facility] Last Admin: 11/24/23 09:04 Dose: 3 ml Documented By: CHINO Tamsulosin HCl (Tamsulosin Hcl 0.4 Mg Capsule) 0.8 mg PO BEDTIME [facility] Last Admin: 11/23/23 21:56 Dose: 0.8 mg Documented By: EZEQUIEL Vitamin D (Cholecalciferol (Vitamin D3) 25 Mcg Tablet) 25 mcg PO DAILY [facility] Last Admin: 11/24/23 09:04 Dose: 25 mcg Documented By: CHINO Labs 11/21/23 11:03 11/21/23 11:03 Microbiology Microbiology Results: Microbiology 11/21/23 11:47 Blood Culture - Preliminary Blood - Venous No growth after 48 hours. 11/21/23 11:04 Blood Culture - Preliminary Blood - Venous No growth after 48 hours. 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 Pt will be admitted to the hospital for observation and further evaluation of right-sided deficits concerning for TIA. 1.Question of TIA -MRI done dot dot dot await results -Echocardiogram .. Done -Continue Pradaxa/atorvastatin 80 mg/ASA 81mg daily -await Neurology input -PT/OT evaluation 2.HFpEF -stable and well compensated -continue current therapies 3.HTN -acceptable control on current therapy -adjust as indicated 4.Paroxysmal AFib -Continue Pradaxa DNR/DNI, Pradaxa Patient requires ongoing hospitalization to complete workup for TIA; high risk for outpatient failure if discharged before workup is complete Quality Stroke Does the patient have a stroke diagnosis?: No VTE Prior VTE?: No VTE Risk Level:: Medical - moderate - high VTE Device Contraindication: Treatment Not Indicated VTE Drug Contraindication: N/A - Med Ordered
--- NOTE | 2023-11-24 13:31 | PM.NEUROCN ---
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 He said that he might have missed dose of Pradaxa. There was no recent head trauma cold or flu-like illness or headache. Review of Systems Review of Systems: As per HPI [facility] Past Medical History Medical History (Updated 11/24/23 @ 13:33 by Reshma Hurley MD) Pacemaker CHF (congestive heart failure) HTN (hypertension) Hyperlipidemia Glaucoma BPH (benign prostatic hyperplasia) CVA (cerebral vascular accident) Afib Surgical History Surgical History S/P TAVR (transcatheter aortic valve replacement) Social History Social History Housing: Assisted Living Facility Do you presently have visiting nurse or other home services: Yes Patient Tobacco Use Status: Never used Tobacco Smoked in Last 30 Days: No Use of substances other than those prescribed or required for medical reasons: No Currently Displaying Signs/Symptoms of Drug Intoxication Withdrawal: No Any prior treatment program specific to substance use: No Have you been hit, kicked, punched, or otherwise hurt by someone within the past year? If so, by whom?: No Do you feel safe in your current relationship?: Yes Is there a partner from a previous relationship who is making you feel unsafe now?: No Are you made to feel afraid or neglected: No Advance Directives: No Advance Directives Information Provided: Yes Advance Directives on File: Yes Recently lost weight without trying: No Eating poorly because of decreased appetite: No Nutrition Risks: On aspiration precautions service: Yes Meds Allergies Allergy/AdvReac Type Severity Reaction Status Date / Time aspirin Allergy Unknown Verified 11/21/23 10:46 lisinopril Allergy Unknown Verified 11/21/23 10:46 Active Medications: Current Medications Acetaminophen (Acetaminophen 325 Mg Tablet) 650 mg PO Q6H PRN PRN Reason: Pain, Mild (Pain Scale 1-3), fever or headache Last Admin: 11/22/23 10:30 Dose: 650 mg Aspirin (Aspirin Enteric Coated 81 Mg Tablet.Dr) 81 mg PO DAILY [facility] Last Admin: 11/24/23 09:04 Dose: 81 mg Atorvastatin Calcium (Atorvastatin Calcium 80 Mg Tablet) 80 mg PO BEDTIME [facility] Last Admin: 11/23/23 21:55 Dose: 80 mg Benzonatate (Benzonatate 100 Mg Capsule) 100 mg PO TID PRN PRN Reason: Cough Brimonidine Tartrate (Brimonidine Tartrate 0.2% Oph 5 Ml Bottle) 1 drop EYE-BOTH TID [facility] Last Admin: 11/24/23 09:04 Dose: 1 drop Calcium Carbonate (Calcium Carbonate 750 Mg Tab.Chew) 750 mg PO Q4H PRN PRN Reason: Heartburn Clonazepam (Clonazepam 1 Mg Tablet) 1 mg PO BEDTIME [facility] Last Admin: 11/23/23 21:55 Dose: 1 mg Dabigatran (Dabigatran Etexilate Mesylate 150 Mg Capsule) 150 mg PO BID [facility] Last Admin: 11/24/23 09:03 Dose: 150 mg Dorzolamide/Timolol (Dorzolamide/Timolo 2.23%/0.68% 10 Ml Drbtl) 1 drop EYE-BOTH TID [facility] Last Admin: 11/24/23 09:04 Dose: 1 drop Furosemide (Furosemide 20 Mg Tablet) 20 mg PO DAILY [facility]; Protocol Last Admin: 11/24/23 09:04 Dose: 20 mg Gabapentin (Gabapentin 300 Mg Capsule) 600 mg PO BEDTIME [facility] Last Admin: 11/23/23 21:55 Dose: 600 mg Lidocaine (Lidocaine 4 % Patch Adh..Patch) 2 patch TRANSDERMA DAILY [facility]; Protocol Last Admin: 11/24/23 09:05 Dose: 2 patch Losartan Potassium (Losartan Potassium 50 Mg Tablet) 50 mg PO DAILY [facility]; Protocol Last Admin: 11/24/23 09:04 Dose: 50 mg Magnesium Hydroxide (Milk Of Magnesia 30 Ml Oral.Susp) 30 ml PO DAILY PRN PRN Reason: Constipation Magnesium Oxide (Magnesium Oxide 400 Mg Tablet) 400 mg PO DAILY [facility] Last Admin: 11/24/23 09:04 Dose: 400 mg Melatonin (Melatonin 3 Mg Tablet) 6 mg PO BEDTIME PRN PRN Reason: Insomnia Mirtazapine (Mirtazapine 15 Mg Tablet) 15 mg PO BEDTIME [facility] Last Admin: 11/23/23 21:55 Dose: 15 mg Non-Formulary Medication (Latanoprostene Bunod) 1 drop EYE-BOTH DAILY [facility] Non-Formulary Medication (Netarsudil) 1 drop EYE-BOTH BEDTIME [facility] Ondansetron HCl (Ondansetron Hcl 4 Mg/2 Ml Vial) 4 mg IVPUSH Q8H PRN PRN Reason: Nausea and Vomiting Pramipexole Dihydrochloride (Pramipexole Di-Hcl 0.25 Mg Tablet) 0.5 mg PO BEDTIME [facility] Last Admin: 11/23/23 21:55 Dose: 0.5 mg Sodium Chloride (0.9 % Sodium Chloride Flush 3 Ml Syringe) 3 ml IVFLUSH QSHIFT [facility] Last Admin: 11/24/23 09:04 Dose: 3 ml Tamsulosin HCl (Tamsulosin Hcl 0.4 Mg Capsule) 0.8 mg PO BEDTIME [facility] Last Admin: 11/23/23 21:56 Dose: 0.8 mg Vitamin D (Cholecalciferol (Vitamin D3) 25 Mcg Tablet) 25 mcg PO DAILY [facility] Last Admin: 11/24/23 09:04 Dose: 25 mcg Home Medications ?Medication ?Instructions ?Recorded ?Confirmed ?Last Taken ?Type acetaminophen 500 mg tablet 1,000 mg PO Q8H PRN Pain 11/21/23 11/21/23 Unknown History aspirin 81 mg capsule 81 mg PO DAILY 11/21/23 11/21/23 Unknown History atorvastatin 80 mg tablet 80 mg PO BEDTIME 11/21/23 11/21/23 Unknown History brimonidine 0.2 % eye drops 1 drp ophthalmic (eye) TID 11/21/23 11/21/23 Unknown History calcium carbonate 1,000 mg PO DAILY 11/21/23 11/21/23 Unknown History cholecalciferol (vitamin D3) 25 25 mcg PO DAILY 11/21/23 11/21/23 Unknown History mcg (1,000 unit) capsule clonazepam 1 mg tablet 1 mg PO BEDTIME 11/21/23 11/21/23 Unknown History dabigatran etexilate 150 mg capsule 150 mg PO BID 11/21/23 11/21/23 Unknown History docusate sodium 100 mg capsule 100 mg PO BID 11/21/23 11/21/23 Unknown History dorzolamide 22.3 mg-timolol 6.8 1 drp ophthalmic (eye) TID 11/21/23 11/21/23 Unknown History mg/mL eye drops furosemide 20 mg tablet 20 mg PO DAILY 11/21/23 11/21/23 Unknown History furosemide 20 mg tablet 20 mg PO DAILY PRN Edema 11/21/23 11/21/23 Unknown History gabapentin 300 mg capsule 600 mg PO BEDTIME 11/21/23 11/21/23 Unknown History hydrocortisone 2.5 % topical 1 appl topical DAILY PRN Itching 11/21/23 11/21/23 Unknown History ointment ketoconazole 2 % shampoo 1 appl topical DAILY PRN eczema 11/21/23 11/21/23 Unknown History latanoprostene bunod 0.024 % eye 1 drp ophthalmic (eye) DAILY 11/21/23 11/21/23 Unknown History drops lidocaine 5 % topical patch 1 patch topical DAILY PRN Pain 11/21/23 11/21/23 Unknown History losartan 50 mg tablet 50 mg PO DAILY 11/21/23 11/21/23 Unknown History magnesium oxide 420 mg tablet 420 mg PO DAILY 11/21/23 11/21/23 Unknown History melatonin 3 mg tablet 6 mg PO BEDTIME PRN Insomnia 11/21/23 11/21/23 Unknown History mirtazapine 15 mg tablet 15 mg PO BEDTIME 11/21/23 11/21/23 Unknown History netarsudil 0.02 % eye drops 1 drp ophthalmic (eye) BEDTIME 11/21/23 11/21/23 Unknown History pramipexole 0.5 mg tablet 0.5 mg PO BEDTIME 11/21/23 11/21/23 Unknown History psyllium 1 packet PO DAILY 11/21/23 11/21/23 Unknown History sennosides 8.6 mg tablet (senna) 8.6 mg PO BID PRN Constipation 11/21/23 11/21/23 Unknown History simethicone 80 mg chewable tablet 80 mg PO TID PRN Other 11/21/23 11/21/23 Unknown History tamsulosin 0.4 mg capsule 0.8 mg PO BEDTIME 11/21/23 11/21/23 Unknown History triamcinolone acetonide 0.025 % 1 appl topical DAILY PRN contact 11/21/23 11/21/23 Unknown History topical cream dermatitis Physical Exam Vital Signs: Vital Signs: Last Vital Signs Temp 97.2 F 11/24/23 11:38 Pulse 82 11/24/23 11:38 Resp 18 11/24/23 11:38 BP 134/78 11/24/23 11:38 Pulse Ox 96 11/24/23 11:38 O2 Del Method Room Air 11/24/23 11:38 O2 Flow Rate 4 11/23/23 04:00 BMI result Body Mass Index 26.3 Neuro: Other: He is alert and awake with normal spontaneity of speech fluency comprehension and affect. Face is symmetrical. Visual carreon are full. There is no focal arm weakness. Results Labs 11/21/23 11:03 11/21/23 11:03 Labs: His MRI of brain revealed moderate size left tate radiata area acute ischemic infarct. Moderate diffuse cerebral and cerebellar atrophy and microvascular ischemic changes were noted. Microbiology Microbiology Results: Microbiology 11/21/23 11:47 Blood - Venous Blood Culture - Preliminary No growth after 48 hours. 11/21/23 11:04 Blood - Venous Blood Culture - Preliminary No growth after 48 hours. Assessment and Plan (1) Cerebral infarction: Qualifiers: Cerebral infarction mechanism: embolism Precerebral and cerebral artery: middle cerebral artery Laterality of affected vessel: left Qualified Code(s): I63.412 - Cerebral infarction due to embolism of left middle cerebral artery Status: Acute 88 years old man with a moderate-size left hemispheric acute ischemic infarction causing right-sided deficit. He said that he might have missed doses of blood thinner. It is important that he takes this type of medicines on regular basis. Otherwise PT OT consult in transferred to rehab is recommended. Procedures Date of Service Date of Service: 11/24/23
--- NOTE | 2023-11-24 13:46 | MHC.STROKE ---
Pt awake, alert and oriented x 3. Skin warm and dry. Resp unlabored. Pt had just finished his lunch. No complaints offered. Pt had Echo and MRI this am. Waiting for results and dispo plan. We discussed his care plan and patient has no questions at this time. Pt denies headache, dizziness. Will continue to assist as needed.
--- NOTE | 2023-11-24 14:08 | MHC.CM.PN ---
Addendum entered by Shelia Sellers 11/24/23 14:26: [facility] not [facility] for [facility] with [facility]. Pt would need to use his medicare benefits for rehab. Original Note: EMR reviewed and per MD rounds, pt is not medically cleared for discharge due to continued workup for TIA. PT/OT recommending STR, would like pt to go to [facility] (acute rehab), referral placed, and [facility] is interested.
[2023-11-24] MEDS: Tamsulosin HCL 0.4 MG CAPSULE 0.8 MG PO (20:43)
[2023-11-24] MEDS: Pramipexole Di-HCL 0.25 MG TABLET 0.5 MG PO (20:43)
[2023-11-24] MEDS: clonazePAM 1 MG TABLET PO (20:43)
[2023-11-24] MEDS: Gabapentin 300 MG CAPSULE 600 MG PO (20:44)
[2023-11-24] MEDS: Atorvastatin Calcium 80 MG TABLET PO (20:44)
[2023-11-24] MEDS: Mirtazapine 15 MG TABLET PO (20:47)
[2023-11-25 03:57] VITALS: BP 115/69; PULSE 64; RESP 17; TEMP 36.6; O2SAT 99
[2023-11-25 07:39] VITALS: BP 126/77; PULSE 60; RESP 18; TEMP 36.1; O2SAT 97
[2023-11-25 09:05] VITALS: BP 126/77
[2023-11-25] MEDS: Losartan Potassium 50 MG TABLET PO (09:05)
[2023-11-25] MEDS: Cholecalciferol (Vitamin D3) 25 MCG TABLET PO (09:05)
[2023-11-25] MEDS: Furosemide 20 MG TABLET PO (09:05)
[2023-11-25] MEDS: Aspirin Enteric Coated 81 MG TABLET.DR PO (09:06)
[2023-11-25] MEDS: Magnesium Oxide 400 MG TABLET PO (09:06)
[2023-11-25] MEDS: Dabigatran Etexilate Mesylate 150 MG CAPSULE PO (09:06)
[2023-11-25] MEDS: 0.9 % Sodium Chloride Flush 3 ML SYRINGE IVFLUSH (09:09)
[2023-11-25 11:20] VITALS: BP 130/80; PULSE 61; RESP 18; TEMP 36.3; O2SAT 97
--- NOTE | 2023-11-25 12:29 | P.DS_ITS ---
DS: Providers Provider Date of Service: 11/25/23 Date of admission: 11/22/23 17:06 Date of discharge: 11/25/23 Primary care physician: Pasha Marrufo MD Consults: 11/21/23 16:22 Consult to Neurology Routine Consulting Provider: [facility] Reason for consultation: Right-sided deficits now resolved, ?TIA DS: Diagnosis Discharge Diagnosis (1) Cerebral infarction: Status: Acute DS: Summary Hospital Course Hospital Course: 88-year-old male with a PMH significant for HLD/CAD, HFpEF, paroxysmal AFib on Pradaxa, severe aortic stenosis now s/p TAVR in 2022, tachy-laila syndrome s/p wireless [employer] Micra pacemaker placed in 2022,?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 Patient comes [facility] where he lives with his who is currently on vacation in [facility]. Patient reports he was in his normal state of health upon waking this morning. Showered, changed, ate breakfast, and checked news/e-mail on his computer without incident. Uses a walker at baseline. However, when patient went to push his chair back from the desk he found he lacked both strength and coordination in order to do so. States has residual left-sided weakness since stroke in 2015, and is unable to further specify whether weakness was bilateral or unilateral. The patient was eventually able to use his phone to contact a neighbor who brought the nurse to see him. Nurse apparently noticed right-sided weakness and slurred speech which resolved shortly before EMS arrived. EMS reported diffuse bilateral lower leg weakness without other focal deficits. Patient currently states he appears back to baseline. Denies headache, confusion, or acute vision changes. Reports some chronic word-finding difficulties at baseline. Denies numbness or tingling in extremities. No noticeable hemiparesis. States left-sided weakness is chronic and seems around baseline. No chest pain/pressure, palpitations. Denies shortness of breath or difficulty breathing. No fever, chills, nausea, vomiting, abdominal pain. In the ED pt was tachypneic up 22, and mildly hypertensive at 157/80. Labs were significant for mildly elevated BNP of 191, otherwise grossly unremarkable. No leukocytosis. Stable H& H. No significant electrolyte abnormalities. Hepatic and renal function WNL. UA negative for UTI. Tested negative for flu, RSV, COVID. CXR showed no evidence for acute disease in the chest. CT?of head no acute intracranial pathology, but showed mild generalized atrophy and nonspecific periventricular white matter disease. CTA of head/neck found multiple age-indeterminate small infarcts, but no acute arterial occlusions no significant arterial stenosis in the head of neck. 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 EKG demonstrated ventricularly paced rhythm. Hospital Course Admitted to telemetry unit; monitor demonstrated a paced rhythm without issue. Workup including head/neck CTA ,head CT and MRI consistent with small acute infarct of the left tate radiata/tail of left caudate nucleus. This was without hemorrhagic transformation. He was seen in consultation by Neurology who stated patient recounted that he might have missed a dose or more of his Pradaxa. Neurology's recommendation was compliance with regimen; continue statin and aspirin as ordered. At this point in time he has been seen by Physical therapy and deemed appropriate for acute rehab. He is medically acceptable for transfer to same Time Attestation Discharge Coordination Time (in mins): 35 Quality: Safe Use of Opioids Does Pt have an Active Cancer Diagnosis on the Problem List?: No Quality: Stroke Does the patient have a stroke diagnosis?: No Physical Exam Vital Signs: Vital Signs: Last Vital Signs Temp 97.3 F 11/25/23 11:20 Pulse 61 11/25/23 11:20 Resp 18 11/25/23 11:20 BP 130/80 11/25/23 11:20 Pulse Ox 97 11/25/23 11:20 O2 Del Method Room Air 11/25/23 11:20 O2 Flow Rate 4 11/23/23 04:00 BMI result Body Mass Index 26.3 Const: Other: Awake alert oriented x3 no acute distress Chest: Other: No palpable device Resp: Other: Clear to auscultation bilaterally. No rales rhonchi or wheezes Cardio: Other: No S4; S1-S2; no S3 murmurs rubs or gallops GI: Other: Soft nontender nondistended normoactive bowel sounds Neuro: Other: Cranial nerves 2-12 grossly intact as tested. Motor 5/5 upper extremity without pronator drift. Motor 4 to 5/5 bilateral lower extremities. Sensation is intact. Gait not observed Extrem: Other: No edema bilaterally DS: Data Data Completed and Pending Labs on day of discharge: Preliminary micro results at discharge 11/21/23 11:47 Blood Culture - Preliminary Blood - Venous No growth after 48 hours. 11/21/23 11:04 Blood Culture - Preliminary Blood - Venous No growth after 48 hours. Discharge Plan Discharge Anticipated Discharge Date/Time: 11/25/23 12:25 Patient Disposition: Xfer Inpatient Rehab Fac Discharge Diagnosis: Acute CVA Referrals: Pasha Marrufo MD [Primary Care Provider] - 1 Week Discharge Medications: Continued acetaminophen 500 mg Tablet 1,000 mg PO Q8H PRN (Reason: Pain) atorvastatin 80 mg Tablet 80 mg PO BEDTIME brimonidine 0.2 % Drops 1 drp OPHTHALMIC (EYE) TID Rx Instructions: administer approximately 8 hours apart aspirin 81 mg Capsule 81 mg PO DAILY calcium carbonate 500 mg calcium (1,250 mg) Tablet 1,000 mg PO DAILY cholecalciferol (vitamin D3) 25 mcg (1,000 unit) Capsule 25 mcg PO DAILY losartan 50 mg Tablet 50 mg PO DAILY sennosides [senna] 8.6 mg Tablet 8.6 mg PO BID PRN (Reason: Constipation) magnesium oxide 420 mg Tablet 420 mg PO DAILY ketoconazole 2 % Shampoo 1 appl TOPICAL DAILY PRN (Reason: eczema) clonazepam 1 mg Tablet 1 mg PO BEDTIME Rx Instructions: administer 30 minutes before bedtime melatonin 3 mg Tablet 6 mg PO BEDTIME PRN (Reason: Insomnia) pramipexole 0.5 mg Tablet 0.5 mg PO BEDTIME triamcinolone acetonide 0.025 % Cream 1 appl TOPICAL DAILY PRN (Reason: contact dermatitis) tamsulosin 0.4 mg Capsule 0.8 mg PO BEDTIME lidocaine 5 % Adhesive Patch,Medicated 1 patch TOPICAL DAILY PRN (Reason: Pain) Rx Instructions: leave on most painful area for up to 12 hrs docusate sodium 100 mg Capsule 100 mg PO BID gabapentin 300 mg Capsule 600 mg PO BEDTIME dorzolamide-timolol 22.3-6.8 mg/mL Drops 1 drp OPHTHALMIC (EYE) TID furosemide 20 mg Tablet 20 mg PO DAILY furosemide 20 mg Tablet 20 mg PO DAILY PRN (Reason: Edema) mirtazapine 15 mg Tablet 15 mg PO BEDTIME hydrocortisone 2.5 % Ointment 1 appl TOPICAL DAILY PRN (Reason: Itching) simethicone 80 mg Tablet,Chewable 80 mg PO TID PRN (Reason: Other) Rx Instructions: PRN Gas dabigatran etexilate 150 mg Capsule 150 mg PO BID latanoprostene bunod 0.024 % Drops 1 drp OPHTHALMIC (EYE) DAILY netarsudil 0.02 % Drops 1 drp OPHTHALMIC (EYE) BEDTIME psyllium Packet 1 packet PO DAILY Rx Instructions: mix into at least 8 oz of water or juice before administering Discharge Orders: Discharge Order (Routine); Ordered 11/25/23 Ordered By: Padilla Hayes Diet: Advance to usual diet Activity on Discharge: As tolerated Stand Alone Forms: Patient Portal Discharge page Print Language: Portuguese Care Plan Goals: Continue all medications as ordered Health Concerns: Requiring acute rehab Plan of Treatment: As per receiving facility Assessment: See discharge summary
--- NOTE | 2023-11-25 12:40 | MHC.CM.PN ---
Addendum entered by Cheryl Kimbrough 11/25/23 12:58: BLS will worm picker 5pm Original Note: IMM 11/23/23 Patient discharged to [facility] today. He will transport via BLS. [place] Nurse Sabi Chaparro notified.
[2023-11-25 15:28] VITALS: BP 165/88; PULSE 81; RESP 20; TEMP 36.7; O2SAT 98
[2023-11-25] MEDS: Dorzolamide/Timolo 2.23%/0.68% 10 ML DRBTL 1 DROP EYE-BOTH (15:50)
[2023-11-25] MEDS: Brimonidine Tartrate 0.2% Oph 5 ML BOTTLE 1 DROP EYE-BOTH (15:50)
== END 2023-11-25 18:11 | DRG 65 ==
LOC: HO.ED 14:17 → HO.EDOVER 16:38 → HO.IMC 17:24
PROVIDERS: Admitting Provider Student in an Organized Health Care Education/Training Program; Emergency Provider Emergency Medicine; PCP Internal Medicine; Visit Provider Hospitalist
DX: I63.9 Cerebral infarction, unspecified (principal); G81.91 Hemiplegia, unspecified affecting right dominant side; I50.32 Chronic diastolic (congestive) heart failure; I11.0 Hypertensive heart disease with heart failure; N40.0 Benign prostatic hyperplasia without lower urinary tract symptoms; I48.0 Paroxysmal atrial fibrillation; Z66 Do not resuscitate; Z20.822 Contact with and (suspected) exposure to COVID-19; T45.516A Underdosing of anticoagulants, initial encounter; I69.344 Monoplegia of lower limb following cerebral infarction affecting left non-dominant side; Z95.0 Presence of cardiac pacemaker; I25.10 Atherosclerotic heart disease of native coronary artery without angina pectoris; I49.5 Sick sinus syndrome; Z95.2 Presence of prosthetic heart valve; Z79.82 Long term (current) use of aspirin; Z79.899 Other long term (current) drug therapy
CPT/HCPCS: 0241U; 70450; 70496; 70498; 70551; 71045; 80048; 80061; 80076; 81003; 82947; 83605; 83735; 83880; 84484; 85025; 85610; 87040; 93005; 93306; 94660; 97162; 97166; 97530; 99285; J1650; Q9957; Q9967

== ENCOUNTER → 2023-11-21 10:40 | Outpatient (BNV) | payer OTHER, SELFPAY | PROVIDERS: Admitting Provider Student in an Organized Health Care Education/Training Program; Emergency Provider Emergency Medicine; PCP Internal Medicine; Visit Provider Internal Medicine Cardiovascular Disease | DX: R94.31 Abnormal electrocardiogram [ECG] [EKG] (principal) | CPT/HCPCS: 93010 ==

== ENCOUNTER → 2023-11-21 15:42 | Outpatient (BNV) | payer OTHER, SELFPAY | PROVIDERS: Admitting Provider Student in an Organized Health Care Education/Training Program; Emergency Provider Emergency Medicine; PCP Internal Medicine; Visit Provider Student in an Organized Health Care Education/Training Program | DX: I63.412 Cerebral infarction due to embolism of left middle cerebral artery (principal) | CPT/HCPCS: 99222; 99232; 99239 ==

== ENCOUNTER 2023-11-22 17:06 | Outpatient (BNV) | payer OTHER, SELFPAY | END 2023-11-24 07:00 | PROVIDERS: Admitting Provider Student in an Organized Health Care Education/Training Program; Emergency Provider Emergency Medicine; PCP Internal Medicine; Visit Provider Internal Medicine Cardiovascular Disease | DX: I35.8 Other nonrheumatic aortic valve disorders (principal) | CPT/HCPCS: 93306 ==

== ENCOUNTER → 2023-11-22 17:06 | Outpatient (BNV) | payer OTHER, SELFPAY | PROVIDERS: Admitting Provider Student in an Organized Health Care Education/Training Program; Emergency Provider Emergency Medicine; PCP Internal Medicine; Visit Provider Psychiatry & Neurology Neurology | DX: I63.412 Cerebral infarction due to embolism of left middle cerebral artery (principal); Z91.199 Patient's noncompliance with other medical treatment and regimen due to unspecified reason | CPT/HCPCS: 99222 ==